=== PATIENT | female | born 1990 | race Caucasian/White ===

== ENCOUNTER → 2023-10-06 11:22 | Outpatient (REF) | payer BC, SELFPAY ==
[2023-10-16 12:13] LABS: Chlamydia trachomatis,ThinPrep Negative (Negative); Neisseria gonorrhoeae,ThinPrep Negative (Negative); Specimen Source Cervical
[2023-10-17 04:12] LABS: HPV Genotype 16 Not Detected; HPV Genotype 18 Not Detected; HPV, High Risk Detected; HPV, High Risk Source Cervical
== END ==
LOC: CLAB 11:22
PROVIDERS: ATTENDING PHYSICIAN Nurse Practitioner Family
DX: Z01.419 Encounter for gynecological examination (general) (routine) without abnormal findings (principal); Z11.51 Encounter for screening for human papillomavirus (HPV); Z11.3 Encounter for screening for infections with a predominantly sexual mode of transmission
CPT/HCPCS: 87491; 87591; 87624; G0123

== ENCOUNTER → 2023-10-23 07:40 | Outpatient (REF) | payer BC, SELFPAY | LOC: PNTC 07:40 | PROVIDERS: ATTENDING PHYSICIAN Obstetrics & Gynecology | DX: Z36.0 Encounter for antenatal screening for chromosomal anomalies (principal); Z36.82 Encounter for antenatal screening for nuchal translucency | CPT/HCPCS: 36415; 76801; 76813 ==

== ENCOUNTER → 2023-11-06 07:14 | Outpatient (REF) | payer BC, SELFPAY | LOC: PNTC 07:14 | PROVIDERS: ATTENDING PHYSICIAN Obstetrics & Gynecology | DX: Z36.0 Encounter for antenatal screening for chromosomal anomalies (principal) | CPT/HCPCS: 36415 ==

== ENCOUNTER → 2023-12-12 10:37 | Outpatient (REF) | payer BC, SELFPAY ==
[2023-12-14 15:57] LABS: Dating Ultrasound; Family Neural Tube Defect Hx No; Insulin Req Maternal Diabetes No; Maternal Age at Delivery 31.4 yr; Maternal Screen Interpretation Screen Neg; Maternal Weight 128.0 lbs.; Number of Fetuses Singleton; Patient's AFP Concentration 60 ng/mL; Smoking No
== END ==
LOC: REG 10:37
PROVIDERS: ATTENDING PHYSICIAN Obstetrics & Gynecology
DX: Z34.90 Encounter for supervision of normal pregnancy, unspecified, unspecified trimester (principal)
CPT/HCPCS: 36415; 82105

== ENCOUNTER → 2024-01-19 07:31 | Outpatient (REF) | payer BC, SELFPAY ==
[2024-01-19 09:42] LABS: Hematocrit 37.4 % (37.0-47.0); Hemoglobin 12.2 g/dL (12.0-16.0); Mean Corp Hgb Conc. 32.6 g/dL (33.0-37.0); Mean Corpuscular Hgb 28.4 pg (27.0-31.0); Mean Corpuscular Volume 87.2 fL (81.0-99.0); Mean Platelet Volume 10.4 fL (7.4-10.4); Platelet Count 319 10^3/uL (130-400); Red Blood Cell Count 4.29 10^6/uL (4.20-5.40); White Blood Cell Count 8.6 10^3/uL (4.8-10.8)
[2024-01-19 09:59] LABS: 1 Hour after 50gm 144 mg/dl
[2024-01-20 16:06] LABS: Syphilis/T. pallidum Ab Reflex Negative (Negative)
== END ==
LOC: REG 07:31
PROVIDERS: ATTENDING PHYSICIAN Obstetrics & Gynecology
DX: Z34.90 Encounter for supervision of normal pregnancy, unspecified, unspecified trimester (principal)
CPT/HCPCS: 36415; 82950; 85027; 86780

== ENCOUNTER → 2024-01-23 07:24 | Outpatient (REF) | payer BC, SELFPAY ==
[2024-01-23 08:14] LABS: Glucose for Tolerance Test 87 mg/dl
[2024-01-23 10:38] LABS: Glucose for Tolerance Test 225 mg/dl
[2024-01-23 11:35] LABS: Glucose for Tolerance Test 226 mg/dl
[2024-01-23 12:49] LABS: Glucose for Tolerance Test 149 mg/dl
== END ==
LOC: REG 07:24
PROVIDERS: ATTENDING PHYSICIAN Obstetrics & Gynecology
DX: Z34.90 Encounter for supervision of normal pregnancy, unspecified, unspecified trimester (principal)
CPT/HCPCS: 36415; 82951

== ENCOUNTER → 2024-01-27 07:15 | Outpatient (REF) | payer BC, SELFPAY | LOC: PNTC 07:15 | PROVIDERS: ATTENDING PHYSICIAN Obstetrics & Gynecology | DX: O24.419 Gestational diabetes mellitus in pregnancy, unspecified control (principal) | CPT/HCPCS: 76816 ==

== ENCOUNTER → 2024-02-03 07:30 | Outpatient (REF) | payer BC, SELFPAY ==
--- NOTE | 2024-02-03 07:34 | PN.DIAED06 ---
Meal Plan - Gestational
- Breakfast
Gestational Diabetes Meal Plan Name: 1800 calories
Breakfast - Total Carbohydrate (grams): 30
Breakfast - Starch Carbohydrate: 1
Breakfast - Fruit Carbohydrate: 0
Breakfast - Milk Carbohydrate: 1
Breakfast - Nonstarchy Vegetables: Yes
Breakfast - Meat/Protein: 1
Breakfast - Fat: 2
- Morning Snack
Morning Snack - Total Carbohydrate (grams): 30
Morning Snack - Starch Carbohydrate: 1
Morning Snack - Fruit Carbohydrate: 0
Morning Snack - Milk Carbohydrate: 1
Morning Snack - Nonstarchy Vegetables: Yes
Morning Snack - Meat/Protein: 0.5
Morning Snack - Fat: 0
- Lunch
Lunch - Total Carbohydrate (grams): 45
Lunch - Starch Carbohydrate: 2
Lunch - Fruit Carbohydrate: 1
Lunch - Milk Carbohydrate: 0
Lunch - Nonstarchy Vegetables: Yes
Lunch - Meat/Protein: 2
Lunch - Fat: 1
- Afternoon Snack
Afternoon Snack - Total Carbohydrate (grams): 30
Afternoon Snack - Starch Carbohydrate: 1
Afternoon Snack - Fruit Carbohydrate: 1
Afternoon Snack - Milk Carbohydrate: 0
Afternoon Snack - Nonstarchy Vegetables: Yes
Afternoon Snack - Meat/Protein: 1
Afternoon Snack - Fat: 0
- Dinner
Dinner - Total Carbohydrate (grams): 45
Dinner - Starch Carbohydrate: 2
Dinner - Fruit Carbohydrate: 0
Dinner - Milk Carbohydrate: 1
Dinner - Nonstarchy Vegetables: Yes
Dinner - Meat/Protein: 2
Dinner - Fat: 2
- Evening Snack
Evening Snack - Total Carbohydrate (grams): 30
Evening Snack - Starch Carbohydrate: 1
Evening Snack - Fruit Carbohydrate: 0
Evening Snack - Milk Carbohydrate: 1
Evening Snack - Nonstarchy Vegetables: Yes
Evening Snack - Meat/Protein: 1
Evening Snack - Fat: 1
--- NOTE | 2024-02-03 13:47 | PN.DIAED02 ---
Referral
DSME Class Series Code: GDM
Referred For: Gestational Diabetes Self-Management Training, Management of Diabetes During , Medical Nutrition Therapy, Self-Blood Glucose Monitoring
PHI Release Authorization Form Signed: Yes
Patient Problems:
Current Active Problems
Problem Status Onset
Gestational diabetes mellitus in , unspecified control
Demographic
(1) Gestational diabetes mellitus in , unspecified control
Status: Acute Code(s): O24.419 - Gestational diabetes mellitus in , unspecified control
Patient's primary language-: Lao
Education: College degree
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
Shift: Day
- Social
Primary Support Person: Self
Primary Care Takers: Self
Living Arrangements: Self & spouse
Medical History of Diabetes
Family Diabetes History: Mother (Had GDM and is currently prediabetic )
Previous Diabetes Education: No
Previous visit with Dietitian: No
- Female Specific Medical History
Currently ?: Yes
Receiving care?: Yes
: 1
Para: 0
Care Plan
- Education Needs
Patient Education Needs: Preconception care//gestational diabetes management
Recommended Diabetes Training Program based on assessment: Gestational Diabetes Management
- Plan of Care
Plan of Care:
Met with Ms. Aguiar today, , currently at 27 weeks of gestation, here today for medical nutrition therapy.
Explained glucose metabolism in body and what occurs during to cause increase blood sugar. Discussed importance of keeping BS well controlled to avoid complications to the baby during and after (macrosomia, hypoglycemia). Explained
to Amy that she is at increased risk of developing T2DM in the future. Aly reports that she has a glucose monitor at home and has been monitoring her blood sugars fasting and 2 hrs after each meal since dx of GDM. Reviewed proper testing
technique, testing sites and testing pattern. She is aware to test FBS and 2 hr pp each meal. Expected results for FBS <95 mg/dl and 2 hr pp <120 mg/dl. Her fasting blood sugar was 97 today and post meal glucose range has been 87 to 138mg/dl.
Provided with 1800 ted GDM meal plan, she has a good understanding of healthy nutrition and has been eating healthy since finding out that she has GDM with this as well. She was educated on how to read a nutritional fact label and look at
total CHO in relation to serving size. No fruit or fruit juice until noontime. Provided with handout on snacks as well as 'Choose Your Foods' booklet. A Log sheet was provided for her to record results, she will send her 5 day meal log with all her
FBG and 2hr Post prandial glucose numbers to this office for review. In addition, she will send all her glucose readings to [facility] every Friday.
She was encouraged to increase her activity and to stay active during her and will reach out should she require insulin.
== END ==
LOC: DES 07:30
PROVIDERS: ATTENDING PHYSICIAN Obstetrics & Gynecology
DX: O24.419 Gestational diabetes mellitus in pregnancy, unspecified control (principal)
CPT/HCPCS: 99078

== ENCOUNTER → 2024-02-23 06:55 | Outpatient (REF) | payer BC, SELFPAY | LOC: PNTC 06:55 | PROVIDERS: ATTENDING PHYSICIAN Obstetrics & Gynecology | DX: O24.419 Gestational diabetes mellitus in pregnancy, unspecified control (principal) | CPT/HCPCS: 76816 ==

== ENCOUNTER 2024-03-20 21:43 | Inpatient (IN) | payer BC, SELFPAY ==
[2024-03-20 22:08] VITALS: BP 133/82; BMI 23.4
[2024-03-20] MEDS: LR 1000 IV (22:15)
[2024-03-20 23:28] LABS: Hematocrit 37.1 % (37.0-47.0); Hemoglobin 12.3 g/dL (12.0-16.0); Mean Corp Hgb Conc. 33.2 g/dL (33.0-37.0); Mean Corpuscular Volume 81.4 fL (81.0-99.0); Mean Platelet Volume 11.2 fL (7.4-10.4); Platelet Count 313 10^3/uL (130-400); Red Blood Cell Count 4.56 10^6/uL (4.20-5.40); Red Cell Dist. Width 12.8 % (11.5-14.5); White Blood Cell Count 9.4 10^3/uL (4.8-10.8)
[2024-03-20] MEDS: PENICILLIN 110 UNITS IV (23:41)
[2024-03-20] MEDS: CELESTONE SOLUSPAN 2 MG IM (23:46)
[2024-03-21 00:04] LABS: Urine Albumin Negative (Neg - Trace); Urine Bilirubin Negative (Negative); Urine Character Clear (Clear); Urine Color Yellow; Urine Glucose Negative (Negative); Urine Ketone Negative (Negative); Urine Leukocyte Negative (Negative); Urine Nitrite Negative (Negative); Urine Occult Blood Negative (Negative); Urine Specific Gravity 1.005 (<1.030); Urine Urobilinogen Negative (Neg - 1+)
[2024-03-21 00:24] LABS: Glucose - Point of Care 111 mg/dl (70-99)
[2024-03-21] MEDS: PENICILLIN 55 UNITS IV ×4 (04:08→16:03)
[2024-03-21 04:15] LABS: Glucose - Point of Care 137 mg/dl (70-99)
[2024-03-21 07:56] LABS: Glucose - Point of Care 135 mg/dl (70-99)
[2024-03-21 11:37] LABS: Glucose - Point of Care 112 mg/dl (70-99)
[2024-03-21] MEDS: MORPHINE SULFATE 2 MG IV (13:57)
--- NOTE | 2024-03-21 14:47 | CON.NEO ---
Consultation
-
Date/Time Consultation Requested: 03/21/2024 @1400
Date/Time Consultation Performed: 03/21/2024 @1410
Requesting Provider: Dr. Dudley
Performing Provider: Dr. Rhodes
Reason for Consultation: labor at 34 weeks
Consultation - Neonatology
Maternal Labs
Blood Type: O Positive
Antibody Screen: Negative
RPR: Nonreactive
Rubella: Immune
Hep B S Ag: Negative
Hep C: Negative
HIV: Nonreactive
Group B Strep: Negative
Chlamydia/GC: Negative
Consult
Mom presented with concern of labor. She is s/p betamethasone x1 dose just at about midnight and is s/p Pen G x2 doses for unknown GBS status.
Points discussed at consult:
- Management at delivery including the possibility of CPAP/intubation/surfactant discussed
- Respiratory: RDS possibility with possibility of worsening for 24-48 hrs, management including CPAP/surfactant/ventilator support may be required
- Nutrition: Hypoglycemia, need for IV fluids, gradual feed advance, Gavage feeding, importance of colostrum feeding, initiation of expression of colostrum within 3-4 hours, availability of donor milk, safety fo donor milk etc. were discussed. Mom
planned to breastfeed and will pump. Donor BM consent and info left for parents' review.
- Procedures: Intubation, CPAP, IV placement, blood tests, umbilical arterial or venous lines, gavage feedings were discussed
- CVS: possibility of PDA not discussed in detail at this time
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
- Jaundice possibility and need for phototherapy discussed
- Heme/ID: Discussed goal for delayed cord clamping as long as baby not critical at delivery and possibility of sepsis eval due to labor.
- Family Centered Care: Discussed FCC with emphasis on parental participation during sign off and during management rounds and is encouraged. Availability of bradley eyes camera also discussed
- COVID-19: Visitation policy, modifications related to COVID-19, ever changing guidelines were discussed
Mom and Dad were given the opportunity to ask questions throughout and open invitation to call if any questions come as they absorb all the information given so far. Also discussed general expectations for length of stay to be around until the
expected due date but is dependent on the baby being able to perform all requirements for stable discharge.
Face to Face Time
Total Ksjo-ca-Emlm Time (in Minutes): 30
Attending Bariatric Program Coordinator: Zenaida Rhodes MD
[2024-03-21] MEDS: SUBLIMAZE 100 MCG EPIDURAL (15:01)
[2024-03-21] MEDS: FENTANYL/BUPIVACAINE 100 EPIDURAL (15:01)
[2024-03-21 16:04] LABS: Glucose - Point of Care 92 mg/dl (70-99)
[2024-03-21 18:30] LABS: B.E. -7.2 mmol/L; HCO3 21.9 mmol/L (21-28); O2 Saturation % 51.5 % (94-98); PCO2 56 mmHg (32-35)
[2024-03-21 18:33] LABS: Venous Blood Gas B.E. -6.8 mmol/L (-4 to +4); Venous Blood Gas HCO3 19.7 mmol/L (22-27); Venous Blood Gas pCO2 42 mmHg (35-48); Venous Blood Gas pH 7.28 (7.32-7.43); Venous Blood Gas pO2 34 mmHg (30-50)
[2024-03-21 18:35] LABS: Venous Blood Gas O2 Sat % 72.1 %
[2024-03-21 18:37] LABS: PO2 25 mmHg (83-108)
[2024-03-21] MEDS: MOTRIN 600 MG PO (21:49)
[2024-03-21] MEDS: TYLENOL 650 MG PO (23:57)
[2024-03-22 05:13] LABS: Hematocrit 30.2 % (37.0-47.0); Hemoglobin 10.1 g/dL (12.0-16.0)
[2024-03-22] MEDS: SENOKOT-S 1 TABLET PO (08:04)
[2024-03-22] MEDS: PRENATAL PLUS 1 TABLET PO (08:04)
[2024-03-22] MEDS: TYLENOL 650 MG PO (08:05)
[2024-03-22] MEDS: MOTRIN 600 MG PO (18:13)
[2024-03-22 19:38] LABS: Hepatitis B Surface Antigen Negative (Negative)
[2024-03-23] MEDS: MOTRIN 600 MG PO (01:28)
[2024-03-23] MEDS: PRENATAL PLUS 1 TABLET PO (08:14)
[2024-03-23 16:07] LABS: Syphilis/T. pallidum Ab Reflex Negative (Negative)
== END 2024-03-23 16:08 | disposition home or self-care (01) | DRG 807 ==
LOC: LDRP 21:43
PROVIDERS: ADMITTING PHYSICIAN Obstetrics & Gynecology
PROC: 0UQMXZZ Repair Vulva, External Approach (ICD-10-PCS; 2024-03-21)
PROC: 10907ZC Drainage of Amniotic Fluid, Therapeutic from Products of Conception, Via Natural or Artificial Opening (ICD-10-PCS; 2024-03-21)
PROC: 10D07Z6 Extraction of Products of Conception, Vacuum, Via Natural or Artificial Opening (ICD-10-PCS; 2024-03-21)
DX: O24.420 Gestational diabetes mellitus in childbirth, diet controlled (principal); Z37.0 Single live birth; O69.1XX0 Labor and delivery complicated by cord around neck, with compression, not applicable or unspecified; O69.82X0 Labor and delivery complicated by other cord entanglement, without compression, not applicable or unspecified; Z3A.34 34 weeks gestation of pregnancy; O70.0 First degree perineal laceration during delivery; O76 Abnormality in fetal heart rate and rhythm complicating labor and delivery
CPT/HCPCS: 88307; 76815; 81003; 82805; 82962; 85014; 85018; 85027; 86780; 86850; 86900; 86901; 87070; 87340

== ENCOUNTER → 2025-02-02 10:03 | Outpatient (REF) | payer BC, SELFPAY | LOC: CLAB 10:03 | PROVIDERS: ATTENDING PHYSICIAN Obstetrics & Gynecology | DX: Z11.3 Encounter for screening for infections with a predominantly sexual mode of transmission (principal) | CPT/HCPCS: 81513; 87481; 87491; 87591; 87661 ==

== ENCOUNTER → 2025-02-05 08:47 | Outpatient (REF) | payer BC, SELFPAY ==
[2025-02-05 09:45] LABS: Urine Albumin Negative (Neg - Trace); Urine Bilirubin Negative (Negative); Urine Character Clear (Clear); Urine Color Yellow; Urine Glucose Negative (Negative); Urine Ketone Negative (Negative); Urine Leukocyte Negative (Negative); Urine Nitrite Negative (Negative); Urine Occult Blood Negative (Negative); Urine Urobilinogen Negative (Neg - 1+)
[2025-02-05 09:49] LABS: % Basophils 0.6 % (0-2); % Eosinophils 1.1 % (0-6); % Immature Granulocytes 0.2 % (0-0.5); % Lymphocytes 33.1 % (20.5-51.1); % Monocytes 9.9 % (1.7-9.3); % Neutrophils 55.1 % (42.2-75.2); Absolute Eosinophils 0.1 10^3/uL (0-0.7); Absolute Lymphocytes 1.8 10^3/uL (1.2-3.4); Absolute Monocytes 0.5 10^3/uL (0.1-0.6); Absolute Neutrophils 2.9 10^3/uL (1.4-6.5); Hematocrit 43.3 % (37.0-47.0); Hemoglobin 15.2 g/dL (12.0-16.0); Mean Corp Hgb Conc. 35.1 g/dL (33.0-37.0); Mean Corpuscular Hgb 30.5 pg (27.0-31.0); Mean Corpuscular Volume 86.8 fL (81.0-99.0); Mean Platelet Volume 9.1 fL (7.4-10.4); Nucleated Red Blood Cells % 0 %; Platelet Count 282 10^3/uL (130-400); Red Blood Cell Count 4.99 10^6/uL (4.20-5.40); Red Cell Dist. Width 12.8 % (11.5-14.5); White Blood Cell Count 5.3 10^3/uL (4.8-10.8)
[2025-02-05 10:41] LABS: Hepatitis B Surface Antigen Negative (Negative)
[2025-02-05 10:49] LABS: HIV Combo Negative (Negative)
[2025-02-05 10:59] LABS: Hepatitis B Core Ab, Total Negative (Negative); Hepatitis C Antibody Negative (Negative)
[2025-02-05 11:19] LABS: Hepatitis B Surface Antibody Indeterminate
[2025-02-05 14:13] LABS: Glycohemoglobin (HgbA1c) 5.1 % (4.0-5.6)
[2025-02-07 19:34] LABS: Rubella Positive
[2025-02-07 20:39] LABS: T. pallidum Ab By TP-PA Non Reactive (Non Reactive)
== END ==
LOC: REG 08:47
PROVIDERS: ATTENDING PHYSICIAN Obstetrics & Gynecology
DX: Z32.01 Encounter for pregnancy test, result positive (principal)
CPT/HCPCS: 36415; 81003; 83036; 84702; 85025; 86704; 86706; 86762; 86780; 86803; 86850; 86900; 86901; 87086; 87340; 87389

== ENCOUNTER → 2025-03-21 14:23 | Outpatient (REF) | payer BC, SELFPAY | LOC: PNTC 14:23 | PROVIDERS: ATTENDING PHYSICIAN Obstetrics & Gynecology | DX: Z36.0 Encounter for antenatal screening for chromosomal anomalies (principal); Z36.82 Encounter for antenatal screening for nuchal translucency | CPT/HCPCS: 76801; 76813; 81420 ==

== ENCOUNTER → 2025-04-11 06:41 | Outpatient (REF) | payer BC, SELFPAY ==
[2025-04-11 09:43] LABS: 1 Hour after 50gm 85 mg/dl
[2025-04-13 11:40] LABS: AFP Multiple of Median (MoM) 0.59; Dating LMP CONF by US; Family Neural Tube Defect Hx No; Gestational Age Calc/Collectio 16 wks, 0 days; Patient's AFP Concentration 23 ng/mL
== END ==
LOC: REG 06:41
PROVIDERS: ATTENDING PHYSICIAN Obstetrics & Gynecology
DX: Z34.93 Encounter for supervision of normal pregnancy, unspecified, third trimester (principal); Z34.92 Encounter for supervision of normal pregnancy, unspecified, second trimester
CPT/HCPCS: 36415; 82105; 82950

== ENCOUNTER → 2025-04-18 13:26 | Outpatient (REF) | payer BC, SELFPAY | LOC: PNTC 13:26 | PROVIDERS: ATTENDING PHYSICIAN Obstetrics & Gynecology | DX: O60.10X0 Preterm labor with preterm delivery, unspecified trimester, not applicable or unspecified (principal) | CPT/HCPCS: 76805; 76817 ==

== ENCOUNTER → 2025-05-12 09:47 | Outpatient (REF) | payer BC, SELFPAY | LOC: PNTC 09:47 | PROVIDERS: ATTENDING PHYSICIAN Obstetrics & Gynecology | DX: O60.10X0 Preterm labor with preterm delivery, unspecified trimester, not applicable or unspecified (principal) | CPT/HCPCS: 76811; 76817 ==

== ENCOUNTER → 2025-06-15 06:36 | Outpatient (REF) | payer BC, SELFPAY ==
[2025-06-15 09:24] LABS: Hematocrit 39.7 % (37.0-47.0); Hemoglobin 13.2 g/dL (12.0-16.0); Mean Corp Hgb Conc. 33.2 g/dL (33.0-37.0); Mean Corpuscular Volume 88.6 fL (81.0-99.0); Nucleated Red Blood Cells % 0 %; Platelet Count 320 10^3/uL (130-400); Red Cell Dist. Width 12.6 % (11.5-14.5)
[2025-06-15 09:36] LABS: 1 Hour after 50gm 149 mg/dl
[2025-06-17 13:41] LABS: Syphilis/T. pallidum Ab Reflex Negative (Negative)
== END ==
LOC: REG 06:36
PROVIDERS: ATTENDING PHYSICIAN Obstetrics & Gynecology; OTHER PHYSICIAN Obstetrics & Gynecology
DX: Z34.93 Encounter for supervision of normal pregnancy, unspecified, third trimester (principal); Z13.1 Encounter for screening for diabetes mellitus
CPT/HCPCS: 36415; 82950; 85025; 86780

== ENCOUNTER → 2025-08-03 06:47 | Outpatient (REF) | payer BC, SELFPAY | LOC: PNTC 06:47 | PROVIDERS: ATTENDING PHYSICIAN Obstetrics & Gynecology | DX: O24.410 Gestational diabetes mellitus in pregnancy, diet controlled (principal) | CPT/HCPCS: 76816 ==

== ENCOUNTER → 2025-08-08 10:22 | Outpatient (REF) | payer BC, SELFPAY | LOC: PNTC 10:22 | PROVIDERS: ATTENDING PHYSICIAN Obstetrics & Gynecology | DX: O24.410 Gestational diabetes mellitus in pregnancy, diet controlled (principal); O60.14X0 Preterm labor third trimester with preterm delivery third trimester, not applicable or unspecified | CPT/HCPCS: 59025 ==

== ENCOUNTER → 2025-08-11 14:17 | Outpatient (REF) | payer BC, SELFPAY | LOC: PNTC 14:17 | PROVIDERS: ATTENDING PHYSICIAN Obstetrics & Gynecology | DX: O24.420 Gestational diabetes mellitus in childbirth, diet controlled (principal); O60.14X0 Preterm labor third trimester with preterm delivery third trimester, not applicable or unspecified | CPT/HCPCS: 76815; 76820 ==

== ENCOUNTER → 2025-08-17 07:51 | Outpatient (REF) | payer BC, SELFPAY | LOC: PNTC 07:51 | PROVIDERS: ATTENDING PHYSICIAN Obstetrics & Gynecology | DX: O24.410 Gestational diabetes mellitus in pregnancy, diet controlled (principal); O60.10X0 Preterm labor with preterm delivery, unspecified trimester, not applicable or unspecified | CPT/HCPCS: 59025; 76815; 76820 ==

== ENCOUNTER → 2025-08-24 07:45 | Outpatient (REF) | payer BC, SELFPAY | LOC: PNTC 07:45 | PROVIDERS: ATTENDING PHYSICIAN Obstetrics & Gynecology; OTHER PHYSICIAN Student in an Organized Health Care Education/Training Program | DX: O24.410 Gestational diabetes mellitus in pregnancy, diet controlled (principal); O60.10X0 Preterm labor with preterm delivery, unspecified trimester, not applicable or unspecified; O36.8390 Maternal care for abnormalities of the fetal heart rate or rhythm, unspecified trimester, not applicable or unspecified | CPT/HCPCS: 59025; 76816; 76818; 76820 ==

== ENCOUNTER → 2025-08-31 09:44 | Outpatient (REF) | payer BC, SELFPAY ==
[2025-08-31 14:47] LABS: Urine Character Clear (Clear)
[2025-08-31 14:53] LABS: Urine White Cell 0-2 /HPF (0-5)
[2025-08-31 14:54] LABS: Urine Red Blood Cell 16-20 /HPF (0-2)
== END ==
LOC: CLAB 09:44
PROVIDERS: ATTENDING PHYSICIAN Obstetrics & Gynecology
DX: Z34.83 Encounter for supervision of other normal pregnancy, third trimester (principal); N39.0 Urinary tract infection, site not specified
CPT/HCPCS: 81003; 81015; 87070; 87086

== ENCOUNTER → 2025-08-31 11:49 | Outpatient (REF) | payer BC, SELFPAY | LOC: PNTC 11:49 | PROVIDERS: ATTENDING PHYSICIAN Obstetrics & Gynecology | DX: O24.410 Gestational diabetes mellitus in pregnancy, diet controlled (principal) | CPT/HCPCS: 59025; 81003; 81015; 87070; 87086 ==

== ENCOUNTER 2025-09-04 12:42 | Observation (INO) | payer BC, SELFPAY ==
[2025-09-04 12:48] VITALS: BP 128/83; BMI 22.3
[2025-09-04] MEDS: LR 1000 IV (17:02)
== END 2025-09-04 20:46 | disposition home or self-care (01) ==
LOC: LDRP 12:42
PROVIDERS: ADMITTING PHYSICIAN Obstetrics & Gynecology
DX: O47.1 False labor at or after 37 completed weeks of gestation (principal); Z3A.36 36 weeks gestation of pregnancy; O24.410 Gestational diabetes mellitus in pregnancy, diet controlled
CPT/HCPCS: 59025; G0378

== ENCOUNTER → 2025-09-06 14:14 | Outpatient (REF) | payer BC, SELFPAY | LOC: PNTC 14:14 | PROVIDERS: ATTENDING PHYSICIAN Obstetrics & Gynecology | DX: O24.410 Gestational diabetes mellitus in pregnancy, diet controlled (principal); O60.10X0 Preterm labor with preterm delivery, unspecified trimester, not applicable or unspecified; O36.5930 Maternal care for other known or suspected poor fetal growth, third trimester, not applicable or unspecified | CPT/HCPCS: 59025; 76816; 76820 ==